=== PATIENT | male | born 1980 | race Asian ===

== ENCOUNTER 2020-05-06 15:10 | Outpatient (REF) | payer OTHER, SELFPAY ==
[2020-05-07 08:00] LABS: HIV AB/AG Nonreactive (Nonreactive); HIV Num 1 0.09 S/CO (0.00-0.99)
== END 2020-05-06 15:11 | disposition home or self-care (01) ==
LOC: HO.MANLDS 15:10
PROVIDERS: PCP Physician Assistant; Visit Provider Physician Assistant
DX: Z11.3 Encounter for screening for infections with a predominantly sexual mode of transmission (principal)
CPT/HCPCS: 87389

== ENCOUNTER 2020-10-20 14:30 | Outpatient (REF) | payer OTHER, SELFPAY ==
[2020-10-21 04:40] LABS: HIV AB/AG Nonreactive (Nonreactive); HIV Num 1 0.08 S/CO (0.00-0.99)
== END 2020-10-20 14:31 | disposition home or self-care (01) ==
LOC: HO.MANLDS 14:30
PROVIDERS: PCP Internal Medicine; Visit Provider Physician Assistant
DX: Z11.3 Encounter for screening for infections with a predominantly sexual mode of transmission (principal)
CPT/HCPCS: 36415; 87389

== ENCOUNTER 2022-03-23 11:58 | Day surgery (SDC) | payer OTHER, SELFPAY ==
--- NOTE | 2022-03-22 10:48 | HO.ANESPROP2 ---
Documented by User: Sangeeta Nguyen NP 03/22/22 10:48 HPI - Anesthesia Eval Consult details Narrative: 41yo M for Exam Under Anesthesia, Fulguration Condylomata & excision PMFSH Active Problems Active Problems: All Active Problems (Updated 03/01/22 @ 11:52 by Rodríguez Villagran MD) Anal condyloma (Acute) Past Medical History Medical History Anal condyloma Family History Family History Family/Other Colon cancer Surgical History Surgical History History of appendectomy History of hernia repair Social History Social History Alcohol intake: never Patient Tobacco Use Status: Never used Tobacco Use of substances other than those prescribed or required for medical reasons: No Are you DNR?: No Advance Directives: No Advance Directives Information Provided: Yes Meds Allergies Allergy/AdvReac Type Severity Reaction Status Date / Time ibuprofen Allergy Unknown Itching Verified 03/01/22 11:39 Exam Exam Date and Time: March 22, 2022 1048 Assessment and Plan Assessment Anesthesia Assessment: Chart Reviewed Documented by User: Jose Hale MD 03/23/22 13:37 PMFSH Past Medical History Medical History Anal condyloma Family History Family History Family/Other Colon cancer Family history of problems with anesthesia: No Surgical History Surgical History History of appendectomy History of hernia repair History of Problems with Anesthesia: No Social History Social History Alcohol intake: never Patient Tobacco Use Status: Never used Tobacco Use of substances other than those prescribed or required for medical reasons: No Are you DNR?: No Advance Directives: No Advance Directives Information Provided: Yes Meds Allergies Allergy/AdvReac Type Severity Reaction Status Date / Time ibuprofen Allergy Unknown Itching Verified 03/01/22 11:39 Exam Airway Mallampati Class: II TM Dist: >3cm Neck ROM: Full Loose/Missing/Broken Teeth: No Heart: [id number] Lungs: cta b/l Assessment and Plan Assessment Anesthesia Assessment: Anesthesia Plan Discussed Final Anesthetic Review Family History of Problems with Anesthesia: No History of Problems with Anesthesia: No NPO: Yes ASA Class: II Final Preanesthetic Review: No Changes in Pt Med Stat, Meds/Allgs Chart Reviewed and Anes Risks/Benef Reviewed Patient Risk: Intermediate Procedure Risk: Intermediate Assessment/Block/Sedation in SS: Assess/Block/Sedation-SS Anesthetic Plan Anesthetic Plan: GA and Agree w/ Assess. and Plan Disposition: Standard PACU
[2022-03-23 12:15] VITALS: BP 132/72; PULSE 69; RESP 18; TEMP 36.3; O2SAT 99; BMI 22.1
[2022-03-23] MEDS: Lactated Ringers 1,000 ML 100 ML IVCONT (12:37)
--- NOTE | 2022-03-23 14:04 | MHC.SHP ---
Pre-Procedural Eval Section A Date of Service: 03/23/22 The patient is an INPATIENT: No Changes since office visit: No Cold of Flu in the past 2 weeks, No New Medical Problems, No Changes in Medication and No Patient answered all questions The History & Physical has been completed within 30 days and I have reviewed it.: Yes Section B Chief Complaint: Anogenital (venereal) warts Allergies: Allergies Allergy/AdvReac Type Severity Reaction Status Date / Time ibuprofen Allergy Unknown Itching Verified 03/01/22 11:39 Plan I have reviewed the history and physical and performed a pertinent physical examination on my patient. No changes have occurred unless specified.
--- NOTE | 2022-03-23 14:56 | W.PM.OPN ---
Operative Note Operative Note Date of Service: 03/23/22 Narrative: Preop diagnosis: Condyloma acuminata, perianal area Postop diagnosis : Bulky condyloma acuminata, perianal area Procedure: Exam under anesthesia, excision and cauterization of perianal condyloma Surgeon: Rodríguez Villagran MD The patient is a 41-year-old male with bulky condylomatous lesions in the perianal area. This appeared to be cauliflower- like lesions consistent with condyloma acuminata. He wanted to proceed with excision and cauterization and was aware of the risks, benefits, and alternatives. He was brought to the operating room and placed in modified lithotomy position under general anesthesia via laryngeal mask airway. The perianal area was prepped and draped in the usual sterile fashion. He received Cefotan 2 g IV preoperatively. I infiltrated the perianal area with lidocaine 1%. Examination of the perianal area revealed the condylomatous lesions, surrounding the entire anal area. This appeared to be the typical cauliflower type lesions. I examined the anal canal using Medina retractors. There were no lesions in the anal canal itself and the lesions were limited to the perianal skin . I excised the bulky condylomatous lesions that had narrower bases using Metzenbaum scissors and these were sent for pathologic examination. Then used the cautery to cauterize the lesions down to a grayish eschar. we proceeded to do this admission of excision and cauterization throughout the anal skin. we proceeded to and cauterized as much of the lesions. Once it appeared that we had adequately removed all the lesions, I irrigated the perianal area. I infiltrated the entire area with Marcaine 0.5% for postop analgesia. The procedure was then completed. The patient tolerated the procedure well. There were no immediate complications. Estimated blood loss was about 10 cc The patient was extubated without difficulty and transferred to the recovery room with stable vital signs.
[2022-03-23 15:08] VITALS: BP 111/47; PULSE 79; RESP 16; TEMP 37.1; O2SAT 96
[2022-03-23 15:13] VITALS: BP 104/54; PULSE 73; RESP 16; O2SAT 100
[2022-03-23 15:18] VITALS: BP 113/65; PULSE 72; RESP 16; O2SAT 100
[2022-03-23 15:23] VITALS: BP 101/50; PULSE 80; RESP 18; O2SAT 96
[2022-03-23 15:33] VITALS: BP 116/71; PULSE 75; RESP 18; TEMP 36.7; O2SAT 93
== END 2022-03-23 15:55 | disposition home or self-care (01) ==
PROVIDERS: PCP Internal Medicine; Visit Provider Surgery
PROC: (CPT 46922; principal; 2022-03-23 14:20)
PROC: (CPT 46922; 2022-03-23 14:20)
DX: A63.0 Anogenital (venereal) warts (principal); Z88.8 Allergy status to other drugs, medicaments and biological substances
CPT/HCPCS: 46922; 88305; J0330; J1100; J2250; J2405; J2795; J3010